=== PATIENT | female | born 1955 | race Caucasian/White ===

== ENCOUNTER 2016-05-05 11:49 | Emergency (ER) | payer BC ==
[2016-05-05 13:52] VITALS: BP 141/72
--- NOTE | 2016-05-05 14:24 | UC ---
Respiratory Complaint HPI - HPI Summary HPI Summary: COUGH X 2 WEEKS + NASAL CONGESTION, PND, BILATERAL EAR PAIN NO FEVER, + CHILLS - History of Current Complaint Chief Complaint: UCRespiratory Stated Complaint: BILATERAL EAR PAIN Time Seen by Provider: 05/05/16 14:15 Hx Obtained From: Patient Hx Last Menstrual Period: n/a Onset/Duration: Gradual Onset, Lasting Weeks - 2, Still Present Severity Initially: Moderate Severity Currently: Moderate Character: Cough: Nonproductive Aggravating Factors: Exertion, Deep Breaths Alleviating Factors: Nothing Associated Signs And Symptoms: Positive: Chills, Wheezing, URI, Nasal Congestion - Allergies/Home Medications Allergies/Adverse Reactions: Allergies Allergy/AdvReac Type Severity Reaction Status Date / Time Bacitracin Allergy Unknown Verified 05/05/16 13:57 Reaction Details Codeine Allergy Dizziness Verified 12/20/13 11:59 Latex Allergy Rash Verified 12/20/13 11:59 Sulfa Antibiotics Allergy Hives Verified 12/20/13 11:58 Home Medications: Home Medications 2nd Anti Reflux Med 1 tab PO QAM 05/05/16 [History Confirmed 05/05/16] Guaifenesin [Tussin Adult] 100 mg PO QPM PRN 05/05/16 [History Confirmed ] Pseudoephedrine HCl [Sudafed 12 Hour] 120 mg PO BID PRN 05/05/16 [History Confirmed 05/05/16] Rosuvastatin Calcium [Crestor] 20 mg PO QPM 05/05/16 [History Confirmed 05/05/16 ] PMH/Surg Hx/FS Hx/Imm Hx Endocrine History Of: Denies: Diabetes Cardiovascular History Of: Denies: Hypertension, Pacemaker/ICD - Surgical History Surgical History: Yes Surgery Procedure, Year, and Place: CHOLECYSTECTOMY, APPY, OVARIES REMOVED, BILATERAL CARPAL TUNNEL, B/L cataracts - Family History Known Family History: Negative: Diabetes - Social History Alcohol Use: Occasionally Substance Use Type: None Smoking Status (MU): Current Every Day Smoker Type: Cigarettes Amount Used/How Often: 1/2 PK DAILY Review of Systems Constitutional: Chills Skin: Negative Eyes: Negative ENT: Sore Throat, Ear Ache, Nasal Discharge Respiratory: Cough Cardiovascular: Negative Gastrointestinal: Negative All Other Systems Reviewed And Are Negative: Yes Physical Exam Triage Information Reviewed: Yes Appearance: Well-Appearing, No Pain Distress, Well-Nourished Vital Signs: Initial Vital Signs Temp 98.7 F 05/05/16 13:45 Pulse 84 05/05/16 13:45 Resp 20 05/05/16 13:45 BP 141/72 05/05/16 13:45 Pulse Ox 100 05/05/16 13:45 Vital Signs Reviewed: Yes Eye Exam: Normal Eyes: Positive: Conjunctiva Clear ENT: Positive: Normal ENT inspection, Hearing grossly normal, Pharyngeal erythema, Nasal congestion, Nasal drainage, TMs normal. Negative: TM bulging, TM dull, TM red Neck exam: Normal Neck: Positive: Supple, Nontender, No Lymphadenopathy Respiratory Exam: Normal Respiratory: Positive: Chest non-tender, Lungs clear, Normal breath sounds, No respiratory distress Cardiovascular: Positive: RRR, No Murmur, Pulses Normal Abdominal Exam: Normal Skin Exam: Normal UC Diagnostic Evaluation - Laboratory O2 Sat by Pulse Oximetry: 100 Respiratory Course/Dx - Differential Dx/Diagnosis Provider Diagnoses: BRONCHITIS Discharge - Discharge Plan Condition: Stable Disposition: HOME Prescriptions: Azithromycin TAB* [Zithromax TAB (Z-KRISTOPHER) 250 mg #6 tabs] 2 tab PO .TODAY, THEN 1 DAILY #1 kristopher Patient Education Materials: Acute Bronchitis (ED) Referrals: Laurence Ni [Primary Care Provider] - 7 Days
== END 2016-05-05 14:33 | disposition home or self-care (01) ==
LOC: UCCORT 11:49
DX: J40 Bronchitis, not specified as acute or chronic (principal); Z90.49 Acquired absence of other specified parts of digestive tract; Z88.5 Allergy status to narcotic agent; Z88.2 Allergy status to sulfonamides; F17.210 Nicotine dependence, cigarettes, uncomplicated
CPT/HCPCS: 99212; G0463

== ENCOUNTER 2016-07-25 10:07 | Emergency (ER) | payer BC ==
[2016-07-25 10:19] VITALS: BP 179/73
--- NOTE | 2016-07-25 10:43 | UC ---
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 She cannot remember an inciting event but awoke with severe pain Saturday. she has a hx of low back pain intermittently which is normally helped by chiropractor. she denies numbness or radiating pain, saddle anesthesia, groin/abd pain. she is a smoker. - History of Current Complaint Chief Complaint: UCBackPain Stated Complaint: SEVERE BACK PAIN Time Seen by Provider: 07/25/16 10:14 Hx Last Menstrual Period: n/a Onset/Duration: Sudden Onset Timing: Constant Severity Initially: Severe Severity Currently: Severe Back Pain: Is Discrete @ - L lower back. she points to the area of the left si joint. Aggravating: Movement - it is worse with sitting as well., Lifting, Bending, Walking Alleviating: Position Associated Signs And Symptoms: Negative: Swelling, Redness, Bruising, Fever, Weakness, Numbness, Tingling, Abdominal Pain, Flank Pain, Bladder Incontinence, Bowel Incontinence, Weight Loss Related History: Previous Back Injury - Risk Factors AAA Risk Factors: Smoking - Allergies/Home Medications Allergies/Adverse Reactions: Allergies Allergy/AdvReac Type Severity Reaction Status Date / Time Acetaminophen Allergy Dizziness Verified 07/25/16 10:20 [From Darvocet-N] Bacitracin Allergy Unknown Verified 07/25/16 10:19 Reaction Details Codeine Allergy Dizziness Verified 07/25/16 10:19 Latex Allergy Rash Verified 07/25/16 10:19 Meperidine [From Demerol HCl] Allergy Dizziness Verified 07/25/16 10:20 Propoxyphene Allergy Dizziness Verified 07/25/16 10:20 [From Darvocet-N] Sulfa Antibiotics Allergy Hives Verified 07/25/16 10:19 aleve, advil Allergy See Comment Uncoded 07/25/16 10:21 PMH/Surg Hx/FS Hx/Imm Hx Endocrine History Of: Denies: Diabetes Cardiovascular History Of: Denies: Hypertension, Pacemaker/ICD GI/ History Of: Reports: Ulcer - gastric - Surgical History Surgical History: Yes Surgery Procedure, Year, and Place: CHOLECYSTECTOMY, APPY, OVARIES REMOVED, BILATERAL CARPAL TUNNEL, B/L cataracts - Family History Known Family History: Negative: Diabetes - Social History Occupation: Employed Full-time Alcohol Use: Rare Substance Use Type: None Smoking Status (MU): Heavy Every Day Tobacco Smoker Type: Cigarettes Amount Used/How Often: 1/2 PK DAILY Review of Systems All Other Systems Reviewed And Are Negative: Yes Physical Exam Triage Information Reviewed: Yes Appearance: Pain Distress - obvious pain and she prefers to stand. she has obvious stiffness. Vital Signs: Initial Vital Signs Temp 98.6 F 07/25/16 10:11 Pulse 99 07/25/16 10:11 Resp 18 07/25/16 10:11 BP 179/73 07/25/16 10:11 Vital Signs Reviewed: Yes Eye Exam: Normal ENT Exam: Normal Neck exam: Normal Respiratory Exam: Normal Cardiovascular Exam: Normal Abdominal Exam: Normal Musculoskeletal Exam: Other - No tenderness. Musculoskeletal: Positive: No Edema Neurological Exam: Normal Neurological: Positive: Alert, Muscle Tone Normal. Negative: Fatigued Skin Exam: Normal Skin: Negative: rashes Back Pain Course/Dx - Course Course Of Treatment: no signs of cord compression. we will start PT and paper referral has been filled out. We will send him to [facility] for futher evaluation as well as out of work. flexaril and tramadol for pain. AAA does not seem likely given the musculoskeltal nature of all her symptoms. - Differential Dx/Diagnosis Differential Diagnosis/HQI/PQRI: Cauda Equina Syndrome, Compressive Cord Syndrome, Epidural Abscess, Fracture, Herniated Disc, Septic Arthritis, Strain, Sprain Provider Diagnoses: acute low back pain Discharge - Discharge Plan Condition: Guarded Disposition: HOME Prescriptions: Cyclobenzaprine TAB* [Flexeril 10 MG TAB*] 10 mg PO BEDTIME PRN #20 tab PRN Reason: Pain traMADol TAB* [Ultram*] 50 mg PO TID #30 tab MDD 3 Patient Education Materials: Acute Low Back Pain (ED) Forms: *Work Release Referrals: Laurence Ni [Nurse Practitioner] - Eber Gómez MD [Medical Doctor] - Jesús Han [Medical Doctor] -
== END 2016-07-25 10:47 | disposition home or self-care (01) ==
LOC: UCCORT 10:07
DX: M54.5 Low back pain (principal); Z90.49 Acquired absence of other specified parts of digestive tract; Z98.42 Cataract extraction status, left eye; Z98.41 Cataract extraction status, right eye; Z88.6 Allergy status to analgesic agent; Z88.5 Allergy status to narcotic agent; Z88.2 Allergy status to sulfonamides; F17.210 Nicotine dependence, cigarettes, uncomplicated
CPT/HCPCS: 99212; G0463

== ENCOUNTER 2017-09-25 10:41 | Emergency (ER) | payer BC ==
[2017-09-25 11:32] VITALS: BP 141/59
[2017-09-25] MEDS ORDERED: Albuterol/Ipratropium NEB.SOL* Albuterol 2.5 MG/Ipratropium 0.5 MG 3 ML INH ONE (12:32)
--- NOTE | 2017-09-25 12:42 | UC ---
Respiratory Complaint HPI - HPI Summary HPI Summary: Patient urgent care today with 1 week of cough and chest tightness. - History of Current Complaint Chief Complaint: UCRespiratory Stated Complaint: COUGH/FEVER/IRAHETA Time Seen by Provider: 09/25/17 12:25 Hx Obtained From: Patient Hx Last Menstrual Period: n/a ?: No Onset/Duration: Gradual Onset, Lasting Weeks - 1, Still Present - Will& Timing: Constant Pain Intensity: 4 Pain Scale Used: 0-10 Numeric Character: Cough: Nonproductive Aggravating Factors: Exertion, Deep Breaths, Recumbent Position Alleviating Factors: Nothing Associated Signs And Symptoms: Positive: Pleuritic Chest Pain, URI - Allergies/Home Medications Allergies/Adverse Reactions: Allergies Allergy/AdvReac Type Severity Reaction Status Date / Time MS Acetaminophen Allergy Dizziness Verified 09/25/17 11:33 [From Darvocet-N] MS Bacitracin [Bacitracin] Allergy Unknown Verified 09/25/17 11:33 Reaction Details MS Codeine [Codeine] Allergy Dizziness Verified 09/25/17 11:33 MS Latex [Latex] Allergy Rash Verified 09/25/17 11:33 MS Meperidine Allergy Dizziness Verified 09/25/17 11:33 [From Demerol HCl] MS Propoxyphene Allergy Dizziness Verified 09/25/17 11:33 [From Darvocet-N] MS Sulfa Antibiotics Allergy Hives Verified 09/25/17 11:33 [Sulfa Antibiotics] aleve, advil Allergy See Comment Uncoded 09/25/17 11:33 PMH/Surg Hx/FS Hx/Imm Hx Previously Healthy: No Endocrine History: Dyslipidemia GI/ History: Gastroesophageal Reflux - Surgical History Surgical History: Yes Surgery Procedure, Year, and Place: CHOLECYSTECTOMY, APPY, OVARIES REMOVED, BILATERAL CARPAL TUNNEL, B/L cataracts - Family History Known Family History: Positive: None Negative: Diabetes - Social History Occupation: Employed Full-time Lives: With Family Alcohol Use: Occasionally Substance Use Type: None Smoking Status (MU): Light Every Day Tobacco Smoker Type: Cigarettes Amount Used/How Often: 1/2 PK DAILY Have You Smoked in the Last Year: Yes Cessation Counseling: Counseled 3+Min - 10 Min Review of Systems Constitutional: Negative Skin: Negative Eyes: Negative ENT: Negative Respiratory: Cough, Other - Chest tightness Cardiovascular: Negative Gastrointestinal: Negative Genitourinary: Negative Motor: Negative Neurovascular: Negative Musculoskeletal: Negative Neurological: Negative Psychological: Negative Is Patient Immunocompromised?: No All Other Systems Reviewed And Are Negative: Yes Physical Exam Triage Information Reviewed: Yes Appearance: Well-Appearing, No Pain Distress, Well-Nourished Vital Signs: Initial Vital Signs Temp 98 F 09/25/17 11:23 Pulse 76 09/25/17 11:23 Resp 18 09/25/17 11:23 BP 141/59 09/25/17 11:23 Pulse Ox 98 09/25/17 11:23 Vital Signs Reviewed: Yes Eye Exam: Normal Eyes: Positive: Conjunctiva Clear ENT Exam: Normal ENT: Positive: Normal ENT inspection, Hearing grossly normal, Pharynx normal, TMs normal, Uvula midline. Negative: Nasal congestion, Tonsillar swelling, Tonsillar exudate, Trismus, Muffled voice, Hoarse voice, Dental tenderness, Sinus tenderness Dental Exam: Normal Neck exam: Normal Neck: Positive: Supple, Nontender Respiratory Exam: Normal Respiratory: Positive: Chest non-tender, Normal breath sounds, No respiratory distress, No accessory muscle use, Decreased breath sounds Cardiovascular Exam: Normal Cardiovascular: Positive: RRR, No Murmur, Pulses Normal, Brisk Capillary Refill Musculoskeletal Exam: Normal Musculoskeletal: Positive: Strength Intact, ROM Intact, No Edema Neurological Exam: Normal Neurological: Positive: Alert, Muscle Tone Normal Psychological Exam: Normal Skin Exam: Normal UC Diagnostic Evaluation - Laboratory O2 Sat by Pulse Oximetry: 98 Diagnostic Studies Comment: Patient refused EKG--- Re-Evaluation - Re-Evaluation First Eval Change: Improved - Chest tightness resolved---"able to take bigger breaths" Respiratory Course/Dx - Course Course Of Treatment: Will dispense an AeroChamber and Rx an albuterol inhaler, Zithromax, increase fluids, will encourage patient to decrease and quit smoking have patient follow with PCP for recheck in 1 week also recheck blood pressure - Differential Dx/Diagnosis Provider Diagnoses: Nicotine dependent, elevated blood pressure without diagnosis hypertension, acute bronchitis. Discharge - Sign-Out/Discharge Documenting (check all that apply): Discharge/Admit/Transfer - Discharge Plan Condition: Stable Disposition: HOME Prescriptions: Albuterol HFA INHALER* [Ventolin HFA Inhaler*] 2 puff INH Q4H PRN #1 mdi PRN Reason: cough chest tightness, wheeze Azithromycin TAB* [Zithromax TAB (Z-KRISTOPHER) 250 mg #6 tabs] 2 tab PO .TODAY, THEN 1 DAILY #1 kristopher Patient Education Materials: How to Stop Smoking (ED), Acute Bronchitis (ED), Hypertension (ED), How to Use a Metered-Dose Inhaler and a Spacer (ED) Referrals: Yoselyn Alvarenga MD [Primary Care Provider] - 1 Week - Billing Disposition and Condition Condition: STABLE Disposition: Home
== END 2017-09-25 13:30 | disposition home or self-care (01) ==
LOC: UCCORT 10:41
DX: J20.9 Acute bronchitis, unspecified (principal); F17.210 Nicotine dependence, cigarettes, uncomplicated; R03.0 Elevated blood-pressure reading, without diagnosis of hypertension; Z88.6 Allergy status to analgesic agent; Z88.1 Allergy status to other antibiotic agents; Z88.5 Allergy status to narcotic agent
CPT/HCPCS: 99212; A9270-GY; G0463